=== PATIENT | female | born 1945 | race Caucasian/White ===

== ENCOUNTER 2024-03-12 23:20 | Emergency (ER) | payer MEDICARE, OTHER, SELFPAY ==
[2024-03-12 23:23] VITALS: BP 160/71; BMI 37.7
[2024-03-12 23:25] VITALS: BP 160/71
[2024-03-12 23:34] LABS: Glucose - Point of Care 80 mg/dl (70-99)
[2024-03-12 23:35] LABS: % Basophils 0.5 % (0-2); % Eosinophils 3.3 % (0-6); % Immature Granulocytes 0.5 % (0-0.5); % Monocytes 8.8 % (1.7-9.3); % Neutrophils 61.9 % (42.2-75.2); Absolute Basophils 0.1 10^3/uL (0-0.2); Absolute Eosinophils 0.4 10^3/uL (0-0.7); Absolute Immature Granulocytes 0.1 10^3/uL (0-0.05); Absolute Lymphocytes 3.2 10^3/uL (1.2-3.4); Absolute Monocytes 1.1 10^3/uL (0.1-0.6); Absolute Neutrophils 7.9 10^3/uL (1.4-6.5); Hematocrit 39.2 % (37.0-47.0); Mean Corp Hgb Conc. 33.2 g/dL (33.0-37.0); Mean Corpuscular Hgb 29.5 pg (27.0-31.0); Mean Corpuscular Volume 89.1 fL (81.0-99.0); Mean Platelet Volume 11.2 fL (7.4-10.4); Nucleated Red Blood Cells % 0 %; Platelet Count 215 10^3/uL (130-400); Red Cell Dist. Width 14.9 % (11.5-14.5); White Blood Cell Count 12.8 10^3/uL (4.8-10.8)
[2024-03-12 23:50] LABS: ALT (SGPT) 24 U/L (0-35); AST (SGOT) 42 U/L (14-36); Albumin 4.3 g/dl (3.5-5.0); Alkaline Phosphatase 60 U/L (38-126); Blood Urea Nitrogen 24 mg/dl (7-17); Calcium 9.6 mg/dl (8.4-10.2); Carbon Dioxide 26 mmol/L (22-30); Chloride 103 mmol/L (98-107); Estimated Creatinine Clearance 50 ml/min; Glucose 123 mg/dl (70-99); Sodium 138 mmol/L (135-145); Total Bilirubin 0.4 mg/dl (0.2-1.3); eGFR 57.31
[2024-03-13] VITALS: BP 154/77
[2024-03-13 00:03] LABS: Troponin I < 0.012 ng/ml
--- NOTE | 2024-03-13 00:55 | ED.GENMED ---
History of Present Illness
General
Chief Complaint: Blood Sugar Problem
Source: patient
Exam Limitations: none
Time Seen by Provider: 03/13/24 00:46
Nursing documentation reviewed up to this point in time: agreed with
Travel History
Have you had any contact with someone who has COVID-19?: No
Do you have any symptoms of coronavirus? Fever > 100 degrees, chills, cough, shortness of breath, sore throat, loss of taste or smell, muscle aches, or headache?: No
History of Present Illness
History of Present Illness:
78 yo female presents to the emergency department c/o mental status change at 830 pm. EMS found blood glucose to be 47, she improved after D10W given by EMS. She takes Januvia, Lantus and metformin.
Past History
Past History
ED Past Medical History: CVA (TIA), GERD, HTN, Hypercholesterolemia, NIDDM and Other (Anemia)
ED Past Surgical History: , Gynecological (Hysterectomy) and Orthopedic (Carpal tunnel)
Social History
Tobacco: Non-smoker
Alcohol: None
Personal:
Living: with family
Family History
Family History: CAD and Other
Review of Systems
Review of Systems
Allergies reviewed?: Yes
All Other Systems: Not applicable
Constitutional: Reports no symptoms
EENT: Reports no symptoms
Respiratory: Reports no symptoms
Cardiac: Reports no symptoms
ABD/GI: Reports no symptoms
: Reports no symptoms
Musculoskeletal: Reports no symptoms
Skin: Reports no symptoms
Neurological: Reports other (Altered mental status)
Endocrine: Reports no symptoms
Hematologic/Lymphatic: Reports no symptoms
Psychiatric: Reports no symptoms
Phy Exam
Physical Exam
Physical Exam:
Physical Exam
General: no apparent distress, not acutely ill
Neck: supple. no meningeal signs. normal posterior pharynx
Heart: s1/s2 regular rate and rhythm, no murmur. equal radial
pulses.
HEENT: Pupils equal round reactive to light, EOMI
Lungs: no acute respiratory distress. clear bilaterally
Abdomen: normal bowel sounds. not tender. no CVAT
Neuro: alert and oriented. no focal neurological deficits cranial nerves II through XII intact
Skin: no rash
Psychiatric: well kept. interactive and cooperative
Extremities: no edema. no calf tenderness. negative homans. good distal pulses
Course
Orders/Labs/Results
Orders:
Orders
03/12/24 23:22
Electrocardiogram (*1) Urgent
Reason for Study: Atrial Fibrillation
03/12/24 23:23
EKG- Treatment ONCE
03/12/24 23:29
Complete Blood Count/With Diff Urgent
Comprehensive Metabolic Panel Urgent
Troponin I Urgent
Abnormal Lab Results
03/12/2424
23:29 02:11
WBC 12.8 H 10^3/uL
(4.8-10.8)
RDW 14.9 H %
(11.5-14.5)
MPV 11.2 H fL
(7.4-10.4)
Abs Immat Gran (auto) 0.1 H 10^3/uL
(0-0.05)
Absolute Neuts (auto) 7.9 H 10^3/uL
(1.4-6.5)
Absolute Monos (auto) 1.1 H 10^3/uL
(0.1-0.6)
BUN 24 H mg/dl
(7-17)
Glucose 123 H mg/dl
(70-99)
AST 42 H U/L
(14-36)
POC Glucose 163 H mg/dl
(70-99)
03/12/24 23:29
03/12/24 23:29
Vital Signs
Initial and Last Documented VS:
Initial Vital Signs
Temp Pulse Resp BP Pulse Ox
98.4 F 84 20 160/71 98
03/12/24 23:23 03/12/24 23:23 03/12/24 23:23 03/12/24 23:23 03/12/24 23:23
Last Documented Vital Signs
Temp Pulse Resp BP Pulse Ox
98.4 F 82 18 154/77 94
03/12/24 23:23 03/13/24 00:15 03/13/24 00:15 03/13/24 00:00 03/13/24 00:45
*Pulse Oximetry
Patient hypoxic: no
*EKG
Interpreted by ED Provider?: Yes
EKG Intrepretation Date: 03/12/24
EKG Intrepretation Time: 23:58
Interpretation: abnormal
Comparison EKG: no changes
Heart Rate: 81
Rate: normal
Rhythm: sinus and PAC's
[place]: normal axis
Interval: normal interval
QRS Pattern: normal QRS
Ischemia: no ischemia
*Supervisor [employer] [place] [employer] Interpretation
Rate: normal
Interpretation: normal
Heart Rate: 80
Rhythm: sinus
*Critical Care Note
Total Time (30-74mins, 75-104mins- exclusive of procedures): Not Applicable
Patient Management
Social determinants of health affecting care: Living situation
Escalation/DeEscalation of care consider admission/obs:
admit not indicated
ED Attending Note
-
Portions of this chart may have been created with voice recognition software.� Occasional wrong word or��sound alike� substitutions may have occurred due to the inherent limitations of voice recognition software.
Discharge Plan
Departure
Patient Disposition: Home (Routine Discharge)
Date of Disposition: 03/13/24
Time of Disposition: 02:26
Patient with high blood pressure during this ER visit?: Yes
Condition: Good
Discharge Problem:
Hypoglycemia
Instructions: Type 2 Diabetes (DC), Low blood sugar in people with diabetes, BLOOD PRESSURE
Prescriptions:
No Action
calcium carbonate-vitamin D3 [Calcium 600 + D(3)] 1 EACH tablet
1 ea PO DAILY
lisinopril 5 MG tablet
10 mg PO DAILY
metformin 500 MG tablet extended release 24 hr
1,000 mg PO HS
loperamide [Imodium] 2 mg Capsule
2 mg PO Q6H PRN (Reason: loose stool)
clopidogrel 75 mg Tablet
75 mg PO HS
methenamine hippurate 1 gram Tablet
1 g PO BID
furosemide [Lasix] 20 mg Tablet
20 mg PO DAILY
Januvia 100 mg Tablet
100 mg PO HS
pitavastatin calcium 2 mg Tablet
2 mg PO DAILY
Beano 400 unit Tablet
400 unit PO BID
sertraline 150 mg Capsule
225 mg PO DAILY
biotin 5,000 mcg Tablet,Chewable
5,000 mcg PO DAILY
fluticasone propionate
Referrals:
Lesly Devlin MD [Family Provider] - Call in 1-3 days for appt
Interventions
Interventions:
*Risk Screen - Suicide Last Done: 03/12/24 23:23
*General Assessment Last Done: 03/12/24 23:23
*Neglect/Abuse Screening Last Done: 03/12/24 23:23
*ED COVID-19 Vaccine History Last Done: 03/12/24 23:23
ED- Neurological Assessment Last Done: 03/12/24 23:44
Discharge Date and Time
Print Language: CITIZEN OF [place]
[2024-03-13 02:13] LABS: Glucose - Point of Care 163 mg/dl (70-99)
[2024-03-13 02:29] VITALS: BP 113/54
== END 2024-03-13 03:07 | disposition home or self-care (01) ==
LOC: EMR 23:20
PROVIDERS: EMERGENCY PHYSICIAN Emergency Medicine; FAMILY PHYSICIAN Internal Medicine
DX: E11.649 Type 2 diabetes mellitus with hypoglycemia without coma (principal); I48.91 Unspecified atrial fibrillation; E78.00 Pure hypercholesterolemia, unspecified; I10 Essential (primary) hypertension; K21.9 Gastro-esophageal reflux disease without esophagitis; Z86.73 Personal history of transient ischemic attack (TIA), and cerebral infarction without residual deficits; Z87.891 Personal history of nicotine dependence; Z79.84 Long term (current) use of oral hypoglycemic drugs; Z91.040 Latex allergy status; Z88.8 Allergy status to other drugs, medicaments and biological substances; Z91.048 Other nonmedicinal substance allergy status
CPT/HCPCS: 99283; 80053; 82962; 84484; 85025; 93005

== ENCOUNTER → 2024-07-28 13:21 | Outpatient (REF) | payer MEDICARE, OTHER, SELFPAY | LOC: WDC 13:21 | PROVIDERS: ATTENDING PHYSICIAN Internal Medicine | DX: Z12.31 Encounter for screening mammogram for malignant neoplasm of breast (principal) | CPT/HCPCS: 77063; 77067 ==

== ENCOUNTER → 2025-01-16 14:22 | Outpatient (REF) | payer MEDICARE, OTHER, SELFPAY | LOC: HWRAD 14:22 | PROVIDERS: ATTENDING PHYSICIAN Internal Medicine | DX: Z91.81 History of falling (principal); M79.672 Pain in left foot | CPT/HCPCS: 73610; 73630 ==

== ENCOUNTER 2025-05-22 22:54 | Inpatient (IN) | payer MEDICARE, OTHER, SELFPAY ==
[2025-05-22 16:49] VITALS: BP 151/87
--- NOTE | 2025-05-22 20:03 | ED.GENMED ---
History of Present Illness
General
Chief Complaint: Musculo-Skeletal Complaint
Source: patient
Time Seen by Provider: 05/22/25 19:23
History of Present Illness
History of Present Illness:
79-year-old female presents to the emergency room at the advice of her reading professor, Dr. Sterling, due to osteomyelitis of the second digit of her left foot. Patient has been noticing redness, swelling, purulent drainage from the toe. An ulceration
developed on the top of the toe. She also noticed swelling and redness of the great toe. When she saw the reading professor she ordered an urgent MRI. This confirms clinical suspicion that she has significant osteomyelitis. He advised her he would like
her to be hospitalized for amputation of the toe tomorrow. She denies any fever. She has not had any nausea or vomiting.
Past History
Past History
ED Past Medical History: CVA (TIA), GERD, HTN, Hypercholesterolemia, NIDDM and Other (Anemia)
ED Past Surgical History: , Gynecological (Hysterectomy) and Orthopedic (Carpal tunnel)
Social History
Tobacco: Non-smoker
Alcohol: None
Personal:
Living: with family
Family History
Family History: CAD and Other
Phy Exam
Physical Exam
Physical Exam:
General: Awake, Alert, Oriented X3. No acute distress.
Vitals: unremarkable
Head: Atraumatic
Eyes: Pupils equal, EOMI
Throat: Airway intact, no exudates
Neck: Trachea midline
Lungs: Clear and equal b/l
Heart: Regular rate, no murmurs
Abd: Soft, Nontender, No pulsatile mass
Neuro: Nonfocal
Skin: Warm, dry, no rash
Extremities: pulses equal b/l. Left foot great toe mildly erythematous and swollen, second toe markedly erythematous swollen with ulceration and some necrotic tissue. Area tender to palpation. Remainder of the foot appears relatively normal.
Course
Orders/Labs/Results
Orders:
Orders
05/22/25 20:21
Basic Metabolic Panel Urgent
Complete Blood Count/With Diff Urgent
Magnesium Urgent
05/22/25 21:04
Ampicillin/Sulbactam 3 G [Unasyn] 3 gm 0.9% Sodium Chloride 100 ml [Nss] 100 ml IV NOW
Vancomycin [Vancocin] 2,000 mg 0.9% Sodium Chloride 500 ml [Nss] 500 ml IV NOW
Abnormal Lab Results
05/22/25
20:21
MCHC 32.6 L g/dL
(33.0-37.0)
MPV 11.2 H fL
(7.4-10.4)
Chloride 109 H mmol/L
(98-107)
BUN 18 H mg/dl
(7-17)
Glucose 123 H mg/dl
(70-99)
05/22/25 20:21
05/22/25 20:21
Vital Signs
Initial and Last Documented VS:
Initial Vital Signs
Temp Pulse Resp BP Pulse Ox
97.8 F 86 18 151/87 98
05/22/25 16:49 05/22/25 16:49 05/22/25 16:49 05/22/25 16:49 05/22/25 16:49
Last Documented Vital Signs
Temp Pulse Resp BP Pulse Ox
97.8 F 70 26 168/61 99
05/22/25 16:49 05/22/25 21:00 05/22/25 21:00 05/22/25 21:00 05/22/25 20:30
MDM/Problems Addressed
Differential Diagnosis Includes:
Cellulitis, osteomyelitis, vascular insufficiency
MDM/Problems Addressed:
Patient presents with redness, purulent drainage and swelling primarily of the left second toe though the left great toe also appears somewhat erythematous. An outpatient MRI confirms the presence of osteomyelitis. Patient is scheduled for the OR
tomorrow. Will obtain some basic labs. She is taking oral antibiotics at this time. Will admit to the hospitalist service
*Pulse Oximetry
SaO2: 98
Oxygen Mode of Delivery: Room air
Patient hypoxic: no
*Critical Care Note
Total Time (30-74mins, 75-104mins- exclusive of procedures): Not Applicable
ED Attending Note
-
Portions of this chart may have been created with voice recognition software.� Occasional wrong word or��sound alike� substitutions may have occurred due to the inherent limitations of voice recognition software.
Discharge Plan
Departure
Patient Disposition: Admit
Date of Disposition: 05/22/25
Time of Disposition: 21:08
Admit to: Med/Surg
Presentation/result/management discussed w/ accepting MD/DO: Hospitalist
Condition: Fair
Discharge Problem:
Osteomyelitis of second toe of left foot
Prescriptions:
No Action
calcium carbonate-vitamin D3 [Calcium 600 + D(3)] 1 EACH tablet
1 ea PO DAILY
lisinopril 5 MG tablet
10 mg PO DAILY
metformin 500 MG tablet extended release 24 hr
1,000 mg PO HS
loperamide [Imodium] 2 mg Capsule
2 mg PO Q6H PRN (Reason: loose stool)
clopidogrel 75 mg Tablet
75 mg PO HS
methenamine hippurate 1 gram Tablet
1 g PO BID
furosemide [Lasix] 20 mg Tablet
20 mg PO DAILY
Januvia 100 mg Tablet
100 mg PO HS
pitavastatin calcium 2 mg Tablet
2 mg PO DAILY
Beano 400 unit Tablet
400 unit PO BID
sertraline 150 mg Capsule
225 mg PO DAILY
biotin 5,000 mcg Tablet,Chewable
5,000 mcg PO DAILY
fluticasone propionate
Referrals:
Lesly Devlin MD [Family Provider, Internal Medicine]
Interventions
Interventions:
*Risk Screen - Suicide Last Done: 05/22/25 20:37
*General Assessment Last Done: 05/22/25 20:10
*Neglect/Abuse Screening Last Done: 05/22/25 20:10
*ED- Fall Risk Assessment Last Done: 05/22/25 20:10
*ED COVID-19 Vaccine History Last Done: 05/22/25 20:10
ED-Musculoskeletal Assessment Last Done: 05/22/25 20:10
Discharge Date and Time
Print Language: [place]
[2025-05-22 20:12] VITALS: BMI 34.8
[2025-05-22 20:13] VITALS: BP 148/77
[2025-05-22 20:27] LABS: Hematocrit 38.3 % (37.0-47.0); Hemoglobin 12.5 g/dL (12.0-16.0); Mean Corp Hgb Conc. 32.6 g/dL (33.0-37.0); Mean Corpuscular Volume 91.0 fL (81.0-99.0); Nucleated Red Blood Cells % 0 %; Platelet Count 175 10^3/uL (130-400); Red Cell Dist. Width 14.0 % (11.5-14.5)
[2025-05-22 20:45] LABS: Blood Urea Nitrogen 18 mg/dl (7-17); Calcium 8.9 mg/dl (8.4-10.2); Carbon Dioxide 25 mmol/L (22-30); Chloride 109 mmol/L (98-107); Estimated Creatinine Clearance 48 ml/min; Glucose 123 mg/dl (70-99); Magnesium 2.0 mg/dl (1.6-2.3); Potassium 3.9 mmol/L (3.5-5.1); Sodium 139 mmol/L (135-145); eGFR 56.95
[2025-05-22 21:00] VITALS: BP 168/61
--- NOTE | 2025-05-22 21:21 | HPS.HSE ---
Addendum entered and electronically signed by Merritt Alberts DO 05/22/25 23:01:
Patient seen and examined independently. Agree with findings and plan as set forth by DENISE Ariza.
Patient is an 79y F with PMH significant for hypertension, DM-II and prior TIA who presents to ED complaining of R 2nd toe pain and redness. Patient states that she slipped in the shower 4 weeks ago and fractured the 1st / 2nd toes on the R
foot. She has been followed by Podiatry since that time. The 2nd digits has a hammertoe deformity and there has been interval development of redness and ulceration over the DIP. She was seen by Podiatry today and had an outpatient MRI which
reportedly showed osteomyelitis. Patient was referred to the ED for admission with tentative plan for 2nd digit amputation tomorrow.
Patient denies any systemic complaints of fevers, chills, N/V/D, etc.
Ass:
Osteomyelitis R 2nd Toe
ASCVD / TIA
Benign Hypertension
DM-II
Hypothyroidism
GERD
Recurrent UTI
Plan:
Admit for further evaluation and treatment.
Initial abx given in the ED - hold further abx pending OR cultures / ID input.
Ortho / Podiatry consulted with tentative plan for OR / amputation on 05/23.
Pain control, supportive care, etc.
Hold Plavix. Continue ASA.
Continue usual outpatient med regimen otherwise.
Follow glucose and cover with SSI as needed.
Original Note:
Family Physician
-
Family Physician: Lesly Devlin
Chief Complaint
-
Left foot second toe erythema, osteomyelitis
History of Present Illness
79-year-old female who was sent by her felt hat flanging operator due to osteomyelitis of the second digit of her left foot. She has noticed redness, swelling with purulent drainage from the toe along with an ulceration at the tip of the toe. Patient reports that
she slipped getting out of the tub approximately 4 weeks ago and fractured her great toe and second toe. She noticed that her second toe became red and swollen this toe has baseline hammertoe. She has an open ulceration on the dorsal aspect. She
reports neuropathy in bilateral feet and does not have any pain. She had outpatient MRI confirming suspicion of osteomyelitis she was sent to ER for hospitalization for amputation of the toe tomorrow 05/23/2025
She has past medical history of CVA/TIA, GERD, HTN, HLD, DM2, diabetic neuropathy to feet anemia
Medical History
Past Medical History
Past Medical History: Reports Other
Additional Past Medical History:
CVA/TIA
GERD
HTN
HLD
DM2
anemia normocytic
Depression
Hypothyroidism
Past Surgical History: Reports Other
Additional Past Surgical History:
section
Hysterectomy
CTR
Social History
Tobacco: Non-smoker
Alcohol: None
Drug: None
Personal:
Living: With Family ( at [facility])
Employment: Retired
Family History
Family History: Not pertinent
Allergies / Home Medications
Allergies reflects when Allergies were last updated in [facility].
Home Medications with original date entered in [facility]
Allergy/Medication List:
Allergies
Allergy/AdvReac Type Severity Reaction Status Date / Time
adhesive tape (Adhesive Tape) Allergy Itching Verified 05/22/25 21:40
latex (Latex) Allergy Shortness Verified 05/22/25 21:40
of Breath
nitrofurantoin (From Allergy elevated Verified 11/05/10 09:09
Macrobid) temp,
worse sx
nitrofurantoin Allergy elevated Verified 11/05/10 09:09
macrocrystalline (From temp,
Macrobid) worse sx
Home Medications
calcium 600 mg (as carbonate)-vitamin D3 5 mcg (200 unit) tablet (Calcium 600 + D(3)) 1 ea PO DAILY 06/08/10
lisinopril 5 mg tablet 10 mg PO DAILY 11/05/10
biotin 5,000 mcg chewable tablet 5,000 mcg PO DAILY 03/12/24
fluticasone propionate 1 spray intranasal DAILY PRN allergies 03/12/24
furosemide 20 mg tablet (Lasix) 20 mg PO DAILY 03/12/24
loperamide 2 mg capsule 2 mg PO Q6H PRN loose stool 03/12/24
methenamine hippurate 1 gram tablet 1 g PO BID 03/12/24
pitavastatin calcium 2 mg tablet 2 mg PO DAILY 03/12/24
sertraline 150 mg capsule 150 mg PO DAILY 03/12/24
Aspir-81 81 mg PO DAILY 05/22/25
Lantus Solostar U-100 Insulin 60 units SC HS 05/22/25
Novolin R FlexPen 10 units SC PC 05/22/25
Synthroid 150 mcg PO DAILY 05/22/25
Zetia 10 mg PO DAILY@18 05/22/25
clopidogrel 75 mg tablet (Plavix) 75 mg PO DAILY 05/22/25
Review of Systems
-
History Source: Patient and Family (Daughter at bedside)
A 12 point ROS was completed and negative except as noted: Yes
Constitutional: Denies Fever or Chills
EENT: Denies Sore Throat or Runny Nose
Respiratory: Denies Cough or Trouble Breathing
Cardiac: Denies Chest Pain, Diaphoresis, Palpitations or Syncope
Abdomen/GI: Denies Abdominal Pain, Nausea, Vomiting, Diarrhea or Constipated
: Denies Dysuria, Frequency, Flank Pain, Incontinence or Difficulty Voiding
Musculoskeletal: Reports Joint Pain (Left second toe with erythema and dorsal aspect ulceration); Denies Edema
Skin: Denies Itching or Rash
Neurological: Denies Dizzy, Headache or Weakness
Endocrine: Reports No Symptoms
Hematologic/Lymphatic: Reports No Symptoms
Psych: Reports Calm
Physical Exam
Vital Signs
Vital Signs
Temp Pulse Resp BP Pulse Ox
97.8 F 70 26 168/61 99
05/22/25 16:49 05/22/25 21:00 05/22/25 21:00 05/22/25 21:00 05/22/25 20:30
Physical Exam
General: Comfortable and Conversant; No Pain, Fever or Chills
HEENT: NormoCephalic, Anicteric, Moist mucous membranes, [place] Conjunctivae and No Ptosis
Respiratory: Clear; No Wheezes, Rales or Rhonchi
Cardiac: S1/S2 and Regular Rhythm; No Murmur, Rub, Gallop or Peripheral Edema
Breast: Deferred by me
GI: Soft, Non Tender, Non Distended, Normal Bowel Sounds and No Hepatosplenomegaly
Rectal: Deferred by Provider
Genito-urinary: Deferred by me
Musculoskeletal: No Clubbing, No Cyanosis and Edema, Left Lower Extremity (Left second toe with erythema and dorsal aspect ulceration); No Edema, Left Upper Extremity, Edema, Right Upper Extremity or Edema, Right Lower Extremity
Skin: Warm and Dry; No Rash
Neuro: AO x 3, No Motor Deficits, Nonfocal/grossly intact, Cranial Nerves Intact and No Sensory Deficits; No Slurred Speech, Facial Droop, Tremors or Sedated
Psych: Calm
Laboratory Results
-
05/22/25 20:21
05/22/25 20:21
Impression/Plan
-
Impression/plan:
Admit to MedSurg
#Osteomyelitis left second toe/hammertoe second toe
Afebrile, nontoxic
- Consult [facility]
-OR in a.m.
Patient was given IV vancomycin IV Unasyn in ER would hold further antibiotics post amputation
Follow CBC, CMP
DM 2/diabetic neuropathy
Blood sugar 123
Accu-Cheks with SSI, check HgbA1c
-Patient is n.p.o. will hold her Lantus 60 units this evening cover with sliding scale
-Patient takes NovoLog 10 units after meals
HTN
BP 168/61
Continue lisinopril 10 mg daily, Lasix 20 mg daily
HLD
Continue Zetia
GERD
No reported meds
Hypothyroidism
Continue Synthroid
Depression
Continue Zoloft 150 mg daily
CVA/TIA
- Hold Plavix, aspirin
Frequent UTIs
Hold methenamine 1 g p.o. twice daily
Anemia normocytic
Hemoglobin stable 12.5
DVT prophylaxis
SCDs
Full code
[2025-05-22] MEDS: UNASYN IV (21:56)
[2025-05-22] MEDS: VANCOCIN 540 MG IV (22:39)
[2025-05-22] MEDS: LANTUS 0.2 UNITS SC (23:27)
[2025-05-22 23:29] VITALS: BP 157/77
[2025-05-22 23:32] LABS: Glucose - Point of Care 152 mg/dl (70-99)
[2025-05-23] VITALS (11 sets, daily range): BP systolic 104–177; BP diastolic 51–100
[2025-05-23] MEDS: SYNTHROID 150 MCG PO (06:06)
[2025-05-23 06:14] LABS: Hematocrit 35.0 % (37.0-47.0); Hemoglobin 11.4 g/dL (12.0-16.0); Mean Corp Hgb Conc. 32.6 g/dL (33.0-37.0); Mean Corpuscular Volume 90.9 fL (81.0-99.0); Nucleated Red Blood Cells % 0 %; Platelet Count 157 10^3/uL (130-400); Red Cell Dist. Width 14.0 % (11.5-14.5)
[2025-05-23 06:48] LABS: ALT (SGPT) 16 U/L (0-35); AST (SGOT) 19 U/L (14-36); Albumin 3.3 g/dl (3.5-5.0); Alkaline Phosphatase 40 U/L (38-126); Blood Urea Nitrogen 17 mg/dl (7-17); Calcium 8.7 mg/dl (8.4-10.2); Carbon Dioxide 26 mmol/L (22-30); Chloride 112 mmol/L (98-107); Estimated Creatinine Clearance 43 ml/min; Glucose 119 mg/dl (70-99); Potassium 3.9 mmol/L (3.5-5.1); Sodium 140 mmol/L (135-145); Total Protein 5.6 g/dl (6.3-8.2); eGFR 50.80
[2025-05-23] MEDS: ZOLOFT 150 MG PO (07:53)
[2025-05-23] MEDS: ZESTRIL 10 MG PO (07:53)
[2025-05-23] MEDS: LOW STRENGTH ASPIRIN 81 MG PO (07:53)
[2025-05-23] MEDS: OSCAL 500 + D 500 MG PO (07:54)
[2025-05-23 08:35] LABS: Glucose - Point of Care 153 mg/dl (70-99)
[2025-05-23 08:41] LABS: Glycohemoglobin (HgbA1c) 7.2 % (4.0-5.6)
[2025-05-23] MEDS: NOVOLOG FLEXPEN-LOW RESISTANCE 1 UNITS SC (09:43)
[2025-05-23 12:19] LABS: Glucose - Point of Care 131 mg/dl (70-99)
[2025-05-23] MEDS: NOVOLOG FLEXPEN-LOW RESISTANCE SC ×2 (12:19→17:05)
--- NOTE | 2025-05-23 12:35 | W.PN.HOSP.TC ---
Today's Communication/Plan
-
OR today
Pain control-post op orders per surgery
ID input
restart plavix post op
Assessment / Plan
Assessment / Plan
General: Comfortable and Conversant;
HEENT: NormoCephalic, Anicteric, Moist mucous membranes, [place] Conjunctivae and No Ptosis
Respiratory: Clear; No Wheezes, Rales or Rhonchi
Cardiac: S1/S2 and Regular Rhythm; No Murmur, Rub, Gallop or Peripheral Edema
GI: Soft, Non Tender, Non Distended, Normal Bowel Sounds
Musculoskeletal: No Clubbing, No Cyanosis and Edema, Left Lower Extremity (Left second toe with erythema and dorsal aspect ulceration);
Skin: Warm and Dry; No Rash
Neuro: AO x 3, No Motor Deficits, Nonfocal/grossly intact, Cranial Nerves Intact and No Sensory Deficits; No Slurred Speech, Facial Droop, Tremors or Sedated
Psych: Calm
#Osteomyelitis left second toe/hammertoe second toe
OR plan for later today by Dr. Fonseca -if surgical cure may not require prolong course of abx.
Patient was given IV vancomycin IV Unasyn in ER would hold further antibiotics post amputation
Follow CBC, CMP
ID input.
#DM 2/diabetic neuropathy
Accu-Cheks with SSI,
A1C 7.2
reduce lantus dose to 30u qhs for now
Patient takes NovoLog 10 units AC
HTN
Continue lisinopril 10 mg daily, Lasix 20 mg daily
HLD
Continue Zetia
GERD
No reported meds
Hypothyroidism
Continue Synthroid
Depression
Continue Zoloft 150 mg daily
CVA/TIA
- Hold Plavix. Cont aspirin
Frequent UTIs
Hold methenamine 1 g p.o. twice daily
Anemia normocytic
Hemoglobin stable 12.5
DVT prophylaxis-post op start chemical ppx once cleared by surgery
Full code
Anticipated Discharge: > 48 hours
Subjective/Interval History
-
Date of Service: May 23, 2025
states of chronic diabetic neuropathy
Objective Data
-
Labs:
Laboratory Results
05/23/25
05:57
WBC 7.1
Hgb 11.4 L
Hct 35.0 L
Plt Count 157
Sodium 140
Potassium 3.9
Chloride 112 H
Carbon Dioxide 26
BUN 17
Creatinine 1.1 H
Glucose 119 H
Calcium 8.7
Total Bilirubin 0.6
AST 19
ALT 16
Alkaline Phosphatase 40
Vital Signs:
Vital Signs
Temp Pulse Resp BP Pulse Ox
98.6 F 64 18 177/81 99
05/23/25 12:33 05/23/25 12:33 05/23/25 12:33 05/23/25 12:33 05/23/25 12:33
Data Reviewed
-
Total Time Spent with Patient (in minutes): 55
--- NOTE | 2025-05-23 13:12 | OR.RPT ---
Addendum entered and electronically signed by Dev Fonseca MD 05/23/25 13:30:
Disregard note
Original Note:
Operative Report
Operative Report
Date of Consultation: 05/23/2025
Chief Complaint
-
Left foot second toe erythema, osteomyelitis
History of Present Illness
79-year-old female who was sent by myself on 05/22/2025 from the office due to osteomyelitis of the second digit of her left foot. She has noticed redness, swelling with purulent drainage from the toe along with an ulceration at the tip of the toe.
Patient reports that she slipped getting out of the tub approximately 4 weeks ago and fractured her great toe and second toe. She noticed that her second toe became red and swollen this toe has baseline hammertoe. She has an open ulceration on the
dorsal aspect. She reports neuropathy in bilateral feet and does not have any pain. She had outpatient MRI confirming suspicion of osteomyelitis she was sent to ER for hospitalization for amputation of the toe 05/23/2025
She has past medical history of CVA/TIA, GERD, HTN, HLD, DM2, diabetic neuropathy to feet anemia
Medical History
Past Medical History
Past Medical History: Reports Other
Additional Past Medical History:
CVA/TIA
GERD
HTN
HLD
DM2
anemia normocytic
Depression
Hypothyroidism
Past Surgical History: Reports Other
Additional Past Surgical History:
section
Hysterectomy
CTR
Social History
Tobacco: Non-smoker
Alcohol: None
Drug: None
Personal:
Living: With Family ( at [facility])
Employment: Retired
Family History
Family History: Not pertinent
Allergies / Home Medications
Allergies reflects when Allergies were last updated in [facility].
Home Medications with original date entered in [facility]
Allergy/Medication List:
Allergies
Allergy/AdvReac Type Severity Reaction Status Date / Time
adhesive tape (Adhesive Tape) Allergy Itching Verified 05/22/25 21:40
latex (Latex) Allergy Shortness Verified 05/22/25 21:40
of Breath
nitrofurantoin (From Allergy elevated Verified 11/05/10 09:09
Macrobid) temp,
worse sx
nitrofurantoin Allergy elevated Verified 11/05/10 09:09
macrocrystalline (From temp,
Macrobid) worse sx
Home Medications
calcium 600 mg (as carbonate)-vitamin D3 5 mcg (200 unit) tablet (Calcium 600 + D(3)) 1 ea PO DAILY 06/08/10
lisinopril 5 mg tablet 10 mg PO DAILY 11/05/10
biotin 5,000 mcg chewable tablet 5,000 mcg PO DAILY 03/12/24
fluticasone propionate 1 spray intranasal DAILY PRN allergies 03/12/24
furosemide 20 mg tablet (Lasix) 20 mg PO DAILY 03/12/24
loperamide 2 mg capsule 2 mg PO Q6H PRN loose stool 03/12/24
methenamine hippurate 1 gram tablet 1 g PO BID 03/12/24
pitavastatin calcium 2 mg tablet 2 mg PO DAILY 03/12/24
sertraline 150 mg capsule 150 mg PO DAILY 03/12/24
Aspir-81 81 mg PO DAILY 05/22/25
Lantus Solostar U-100 Insulin 60 units SC HS 05/22/25
Novolin R FlexPen 10 units SC PC 05/22/25
Synthroid 150 mcg PO DAILY 05/22/25
Zetia 10 mg PO DAILY@18 05/22/25
clopidogrel 75 mg tablet (Plavix) 75 mg PO DAILY 05/22/25
Review of Systems
-
History Source: Patient and Family (Daughter at bedside)
A 12 point ROS was completed and negative except as noted: Yes
Constitutional: Denies Fever or Chills
EENT: Denies Sore Throat or Runny Nose
Respiratory: Denies Cough or Trouble Breathing
Cardiac: Denies Chest Pain, Diaphoresis, Palpitations or Syncope
Abdomen/GI: Denies Abdominal Pain, Nausea, Vomiting, Diarrhea or Constipated
: Denies Dysuria, Frequency, Flank Pain, Incontinence or Difficulty Voiding
Musculoskeletal: Reports Joint Pain (Left second toe with erythema and dorsal aspect ulceration); Denies Edema
Skin: Denies Itching or Rash
Neurological: Denies Dizzy, Headache or Weakness
Endocrine: Reports No Symptoms
Hematologic/Lymphatic: Reports No Symptoms
Psych: Reports Calm
Physical Exam
Vital Signs
Vital Signs
Temp Pulse Resp BP Pulse Ox
97.8 F 70 26 168/61 99
05/22/25 16:49 05/22/25 21:00 05/22/25 21:00 05/22/25 21:00 05/22/25 20:30
Physical Exam
General: Comfortable and Conversant; No Pain, Fever or Chills
HEENT: NormoCephalic, Anicteric, Moist mucous membranes, [place] Conjunctivae and No Ptosis
Respiratory: Clear; No Wheezes, Rales or Rhonchi
Cardiac: S1/S2 and Regular Rhythm; No Murmur, Rub, Gallop or Peripheral Edema
Breast: Deferred by me
GI: Soft, Non Tender, Non Distended, Normal Bowel Sounds and No Hepatosplenomegaly
Rectal: Deferred by Provider
Genito-urinary: Deferred by me
Musculoskeletal: No Clubbing, No Cyanosis and Edema, Left Lower Extremity (Left second toe with erythema and dorsal aspect ulceration); No Edema, Left Upper Extremity, Edema, Right Upper Extremity or Edema, Right Lower Extremity
Skin: Warm and Dry; No Rash
Neuro: AO x 3, No Motor Deficits, Nonfocal/grossly intact, Cranial Nerves Intact and No Sensory Deficits; No Slurred Speech, Facial Droop, Tremors or Sedated
Psych: Calm
LLE Physical Exam
-DP/PT pulses 1/4 bilaterally, capillary refill < 3 seconds
-Left 2nd PIPJ with full thickness wound, exposed bone and serous drainage. Dislocation noted of left hallux
-Neurological status to the foot grossly diminished
Laboratory Results
-
05/22/25 20:21
05/22/25 20:21
Impression/Plan
79 yo F with PMH CVA/TIA, GERD, HTN, HLD, DM2, diabetic neuropathy presents with left 2nd toe osteomyelitis from outpatient MRI
-Outpatient imaging reviewed
-Ok to hold antibiotics for operative cultures
-Plan for left 2nd toe amputation 05/23
-Heel WBAT to LLE
-Labs reviewed, hbA1c 7.2% no leukocytosis
-Will consider ELIZABETH/PVR post op pending intraoperative bleeding. Peripheral pulses are palpable
--- NOTE | 2025-05-23 13:30 | CON.SURG ---
Surgical Consultation
-
Operative Report
Operative Report
Date of Consultation: 05/23/2025
Chief Complaint
-
Left foot second toe erythema, osteomyelitis
History of Present Illness
79-year-old female who was sent by myself on 05/22/2025 from the office due to osteomyelitis of the second digit of her left foot. She has noticed redness, swelling with purulent drainage from the toe along with an ulceration at the tip of the toe.
Patient reports that she slipped getting out of the tub approximately 4 weeks ago and fractured her great toe and second toe. She noticed that her second toe became red and swollen this toe has baseline hammertoe. She has an open ulceration on the
dorsal aspect. She reports neuropathy in bilateral feet and does not have any pain. She had outpatient MRI confirming suspicion of osteomyelitis she was sent to ER for hospitalization for amputation of the toe 05/23/2025
She has past medical history of CVA/TIA, GERD, HTN, HLD, DM2, diabetic neuropathy to feet anemia
Medical History
Past Medical History
Past Medical History: Reports Other
Additional Past Medical History:
CVA/TIA
GERD
HTN
HLD
DM2
anemia normocytic
Depression
Hypothyroidism
Past Surgical History: Reports Other
Additional Past Surgical History:
section
Hysterectomy
CTR
Social History
Tobacco: Non-smoker
Alcohol: None
Drug: None
Personal:
Living: With Family ( at [employer])
Employment: Retired
Family History
Family History: Not pertinent
Allergies / Home Medications
Allergies reflects when Allergies were last updated in [email or web address].
Home Medications with original date entered in [email or web address]
Allergy/Medication List:
Allergies
Allergy/AdvReac Type Severity Reaction Status Date / Time
adhesive tape (Adhesive Tape) Allergy Itching Verified 05/22/25 21:40
latex (Latex) Allergy Shortness Verified 05/22/25 21:40
of Breath
nitrofurantoin (From Allergy elevated Verified 11/05/10 09:09
Macrobid) temp,
worse sx
nitrofurantoin Allergy elevated Verified 11/05/10 09:09
macrocrystalline (From temp,
Macrobid) worse sx
Home Medications
calcium 600 mg (as carbonate)-vitamin D3 5 mcg (200 unit) tablet (Calcium 600 + D(3)) 1 ea PO DAILY 06/08/10
lisinopril 5 mg tablet 10 mg PO DAILY 11/05/10
biotin 5,000 mcg chewable tablet 5,000 mcg PO DAILY 03/12/24
fluticasone propionate 1 spray intranasal DAILY PRN allergies 03/12/24
furosemide 20 mg tablet (Lasix) 20 mg PO DAILY 03/12/24
loperamide 2 mg capsule 2 mg PO Q6H PRN loose stool 03/12/24
methenamine hippurate 1 gram tablet 1 g PO BID 03/12/24
pitavastatin calcium 2 mg tablet 2 mg PO DAILY 03/12/24
sertraline 150 mg capsule 150 mg PO DAILY 03/12/24
Aspir-81 81 mg PO DAILY 05/22/25
Lantus Solostar U-100 Insulin 60 units SC HS 05/22/25
Novolin R FlexPen 10 units SC PC 05/22/25
Synthroid 150 mcg PO DAILY 05/22/25
Zetia 10 mg PO DAILY@18 05/22/25
clopidogrel 75 mg tablet (Plavix) 75 mg PO DAILY 05/22/25
Review of Systems
-
History Source: Patient and Family (Daughter at bedside)
A 12 point ROS was completed and negative except as noted: Yes
Constitutional: Denies Fever or Chills
EENT: Denies Sore Throat or Runny Nose
Respiratory: Denies Cough or Trouble Breathing
Cardiac: Denies Chest Pain, Diaphoresis, Palpitations or Syncope
Abdomen/GI: Denies Abdominal Pain, Nausea, Vomiting, Diarrhea or Constipated
: Denies Dysuria, Frequency, Flank Pain, Incontinence or Difficulty Voiding
Musculoskeletal: Reports Joint Pain (Left second toe with erythema and dorsal aspect ulceration); Denies Edema
Skin: Denies Itching or Rash
Neurological: Denies Dizzy, Headache or Weakness
Endocrine: Reports No Symptoms
Hematologic/Lymphatic: Reports No Symptoms
Psych: Reports Calm
Physical Exam
Vital Signs
Vital Signs
Temp Pulse Resp BP Pulse Ox
97.8 F 70 26 168/61 99
05/22/25 16:49 05/22/25 21:00 05/22/25 21:00 05/22/25 21:00 05/22/25 20:30
Physical Exam
General: Comfortable and Conversant; No Pain, Fever or Chills
HEENT: NormoCephalic, Anicteric, Moist mucous membranes, [place] Conjunctivae and No Ptosis
Respiratory: Clear; No Wheezes, Rales or Rhonchi
Cardiac: S1/S2 and Regular Rhythm; No Murmur, Rub, Gallop or Peripheral Edema
Breast: Deferred by me
GI: Soft, Non Tender, Non Distended, Normal Bowel Sounds and No Hepatosplenomegaly
Rectal: Deferred by Provider
Genito-urinary: Deferred by me
Musculoskeletal: No Clubbing, No Cyanosis and Edema, Left Lower Extremity (Left second toe with erythema and dorsal aspect ulceration); No Edema, Left Upper Extremity, Edema, Right Upper Extremity or Edema, Right Lower Extremity
Skin: Warm and Dry; No Rash
Neuro: AO x 3, No Motor Deficits, Nonfocal/grossly intact, Cranial Nerves Intact and No Sensory Deficits; No Slurred Speech, Facial Droop, Tremors or Sedated
Psych: Calm
LLE Physical Exam
-DP/PT pulses 1/4 bilaterally, capillary refill < 3 seconds
-Left 2nd PIPJ with full thickness wound, exposed bone and serous drainage. Dislocation noted of left hallux
-Neurological status to the foot grossly diminished
Laboratory Results
-
05/22/25 20:21
05/22/25 20:21
Impression/Plan
79 yo F with PMH CVA/TIA, GERD, HTN, HLD, DM2, diabetic neuropathy presents with left 2nd toe osteomyelitis from outpatient MRI
-Outpatient imaging reviewed
-Ok to hold antibiotics for operative cultures
-Plan for left 2nd toe amputation 05/23
-Heel WBAT to LLE
-Labs reviewed, hbA1c 7.2% no leukocytosis
-Will consider ELIZABETH/PVR post op pending intraoperative bleeding. Peripheral pulses are palpable
--- NOTE | 2025-05-23 13:39 | CON.ID ---
Consultation
-
Date/Time Consultation Requested: 05/23/2025 1243
Date/Time Consultation Performed: 05/03/2025 1300
Requesting Provider: Dr. Lemus
Performing Provider: Dr. Brown
Reason for Consultation: Left second toe osteomyelitis
Chief Complaint / Past History
History of Present Illness
Shonda Rob is an 79-year-old female being evaluated at the request of Dr. Lemus in regards to left second toe osteomyelitis. History is obtained from chart review, along with patient interview.
Patient reports that in mid February she sustained a fall living at her assisted living facility. At that time, she recalls that she heard a 'crack' in her feet. A week later, she reports she was seen at [facility], and x-rays were
performed (not available to me at the present time). And she reports that her toes were broken.
In the interim, she wore shoes, but notes that she developed an area of irritation at the top of her left second toe which ultimately broke down. She has been followed by Podiatry closely and recently an MRI was performed (outside the hospital)
which revealed the presence of osteomyelitis. She has been brought into the hospital for amputation of her left second toe. She notes that she has been on antibiotics for approximately the past 18 days (cefadroxil)
She denies any spreading erythema up her foot and leg. She denies specific pain at the present time.
Past History
Additional Past Medical History:
DM
Hypothyroidism
HLD
HTN
CVA/TIA
Anemia
Depression
Additional Past Surgical History:
Fracture left patella
Allergy History:
adhesive tape (Adhesive Tape) Allergy (Verified 05/22/25 21:40)
Itching
latex (Latex) Allergy (Verified 05/22/25 21:40)
Shortness of Breath
nitrofurantoin (From Macrobid) Allergy (Verified 11/05/10 09:09)
elevated temp, worse sx
nitrofurantoin macrocrystalline (From Macrobid) Allergy (Verified 11/05/10 09:09)
elevated temp, worse sx
Medications Reviewed: Yes
Current Antibiotics:
None
Social History
Tobacco: Non-Smoker
Alcohol: None
Drug: None
Living: Assisted Living
Employment: Not Employed
Family History
Family History: Not Pertinent
Review of Systems
Vital Signs
Temp Pulse Resp BP Pulse Ox
98.6 F 64 18 177/81 99
05/23/25 12:33 05/23/25 12:33 05/23/25 12:33 05/23/25 12:33 05/23/25 12:33
Physical Exam
Physical Exam
Constitutional: No Acute Distress, Comfortable and Non-toxic
Eyes: No Conjunctival Hemorrhage and Sclera Anicteric
Oral: No Thrush and No Ulcers
Cardiovascular: Regular Rate and S1/S2; Negative S3/S4
Pulmonary: Clear; Negative Wheezes, Rales or Rhonchi
Gastrointestinal: Soft, Non Tender, Non Distended and Normal Bowel Sounds
Extremities: Negative Edema, Clubbing or Cyanosis
Skin: Warm and Dry
Wound: Other (Left second toe with dorsal erosion revealing tendon underneath. Positive swelling. Positive erythema. No expressible purulence.)
Neurological: Awake, Alert and Oriented
Lab / Diagnostic Study Results
05/23/25 05:57
05/23/25 05:57
Abs Immat Gran (auto) 0.0 10^3/uL (0-0.05) 05/23/25 05:57
Absolute Neuts (auto) 3.7 10^3/uL (1.4-6.5) 05/23/25 05:57
Absolute Lymphs (auto) 2.4 10^3/uL (1.2-3.4) 05/23/25 05:57
Absolute Monos (auto) 0.6 10^3/uL (0.1-0.6) 05/23/25 05:57
Absolute Basos (auto) 0.1 10^3/uL (0-0.2) 05/23/25 05:57
Immature Gran % 0.3 % (0-0.5) 05/23/25 05:57
Neutrophils % 52.6 % (42.2-75.2) 05/23/25 05:57
Lymphocytes % 33.9 % (20.5-51.1) 05/23/25 05:57
Monocytes % 8.3 % (1.7-9.3) 05/23/25 05:57
Eosinophils % 4.1 % (0-6) 05/23/25 05:57
Basophils % 0.8 % (0-2) 05/23/25 05:57
Assessment / Plan
Left second toe osteomyelitis
Left second toe cellulitis
DM
Hypothyroidism
HLD
HTN
CVA/TIA
Anemia
Depression
Recommendations:
Patient is for second toe amputation later today.
Check intraoperative cultures (although may be compromised by recent antibiotic administration)
Await pathology to assess for surgical cure.
Will attempt to view radiology reports from outside institution.
Further recommendations as additional data is returned.
--- NOTE | 2025-05-23 15:44 | W.PN.SURGUPD ---
Surgical Update
Surgical Update
79 yo F s/p left 2nd toe amputation with primary closure
-Dressings can remain C/D/I
-Continue antibiotics while admitted
-Cultue x1 path x1
-No further surgical plans
-Heel WBAT to LLE in surgical shoe
-PT/OT
[2025-05-23 15:56] LABS: Glucose - Point of Care 100 mg/dl (70-99)
--- NOTE | 2025-05-23 17:16 | PTCARENOTE ---
Patient admitted to 4W from PACU, AAOx3. Patient denying pain or any acute complaints at this time. Surgical dressing CDI. Assisted patient to order dinner. Oriented patient to plan of care. Call choudhary within reach.
[2025-05-23] MEDS: ZETIA 10 MG PO (17:37)
[2025-05-23 21:59] LABS: Glucose - Point of Care 240 mg/dl (70-99)
[2025-05-23] MEDS: LANTUS 0.3 UNITS SC (21:59)
[2025-05-24] MEDS: SYNTHROID 150 MCG PO (06:34)
[2025-05-24 07:00] VITALS: BP 132/66
[2025-05-24 07:07] LABS: Glucose - Point of Care 161 mg/dl (70-99)
[2025-05-24] MEDS: NOVOLOG FLEXPEN-LOW RESISTANCE 1 UNITS SC (08:17)
[2025-05-24] MEDS: LOW STRENGTH ASPIRIN 81 MG PO (08:18)
[2025-05-24] MEDS: ZESTRIL 10 MG PO (08:18)
[2025-05-24] MEDS: ZOLOFT 150 MG PO (08:18)
[2025-05-24] MEDS: OSCAL 500 + D 500 MG PO (08:18)
[2025-05-24 08:37] LABS: Hematocrit 37.5 % (37.0-47.0); Hemoglobin 12.0 g/dL (12.0-16.0); Mean Corp Hgb Conc. 32.0 g/dL (33.0-37.0); Mean Corpuscular Volume 92.4 fL (81.0-99.0); Nucleated Red Blood Cells % 0 %; Platelet Count 179 10^3/uL (130-400); Red Cell Dist. Width 14.0 % (11.5-14.5)
[2025-05-24 09:22] LABS: ALT (SGPT) 15 U/L (0-35); AST (SGOT) 19 U/L (14-36); Albumin 3.9 g/dl (3.5-5.0); Alkaline Phosphatase 47 U/L (38-126); Blood Urea Nitrogen 18 mg/dl (7-17); Calcium 8.8 mg/dl (8.4-10.2); Carbon Dioxide 26 mmol/L (22-30); Chloride 109 mmol/L (98-107); Estimated Creatinine Clearance 43 ml/min; Glucose 154 mg/dl (70-99); Potassium 4.9 mmol/L (3.5-5.1); Sodium 138 mmol/L (135-145); Total Protein 6.3 g/dl (6.3-8.2); eGFR 50.80
[2025-05-24 11:31] LABS: Glucose - Point of Care 141 mg/dl (70-99)
[2025-05-24] MEDS: NOVOLOG FLEXPEN-LOW RESISTANCE SC ×2 (11:32→16:23)
[2025-05-24] MEDS: ANCEF 10 IV ×2 (11:35→19:36)
--- NOTE | 2025-05-24 11:57 | W.PN.HOSP.TC ---
Today's Communication/Plan
-
plavix-okay to restart per surgery
adjust insulin to home regimen
await OR cultures
ID recs
PT eval
Assessment / Plan
Assessment / Plan
General: Comfortable and Conversant;
HEENT: NormoCephalic, Anicteric, Moist mucous membranes, [place] Conjunctivae and No Ptosis
Respiratory: Clear; No Wheezes, Rales or Rhonchi
Cardiac: S1/S2 and Regular Rhythm; No Murmur, Rub, Gallop or Peripheral Edema
GI: Soft, Non Tender, Non Distended, Normal Bowel Sounds
Musculoskeletal: No Clubbing, No Cyanosis and Edema, Left Lower Extremity s/p amputation of L 2nd toe.
Skin: Warm and Dry; No Rash
Neuro: AO x 3, No Motor Deficits, Nonfocal/grossly intact, Cranial Nerves Intact and No Sensory Deficits; No Slurred Speech, Facial Droop, Tremors or Sedated
Psych: Calm
#Osteomyelitis left second toe/hammertoe second toe
Status post left second toe amputation with primary closure
Follow-up on the cultures. No further surgical plans.
Patient was given IV vancomycin IV Unasyn in ER would hold further antibiotics post amputation
Follow CBC, CMP
Per podiatry heel weightbearing as tolerated to left lower extremity in surgical shoe
Preliminary OR cultures negative
ID input.
#DM 2/diabetic neuropathy
Accu-Cheks with SSI,
A1C 7.2
Cont home lantus 60u qhs
Cont home NovoLog 10 units AC
HTN
Continue lisinopril 10 mg daily, Lasix 20 mg daily
HLD
Continue Zetia
GERD
No reported meds
Hypothyroidism
Continue Synthroid
Depression
Continue Zoloft 150 mg daily
CVA/TIA
-Continue aspirin and Plavix. Discussed with surgery okay to be restarted on Plavix.
Frequent UTIs
Hold methenamine 1 g p.o. twice daily
Anemia normocytic
Hemoglobin stable
DVT prophylaxis-
Full code
Anticipated Discharge: > 48 hours
Subjective/Interval History
-
Date of Service: May 24, 2025
denies pain to R foot
tolerating diet
ambulating wtih walker
Objective Data
-
Labs:
Laboratory Results
05/24/25
06:50
WBC 9.0
Hgb 12.0
Hct 37.5
Plt Count 179
Sodium 138
Potassium 4.9 D
Chloride 109 H
Carbon Dioxide 26
BUN 18 H
Creatinine 1.1 H
Glucose 154 H
Calcium 8.8
Total Bilirubin 0.5
AST 19
ALT 15
Alkaline Phosphatase 47
Vital Signs:
Vital Signs
Temp Pulse Resp BP Pulse Ox
97.4 F 66 16 132/66 98
05/24/25 07:00 05/24/25 07:00 05/24/25 07:00 05/24/25 07:00 05/24/25 08:00
I&O
05/23/25 05/24/25 05/25/25
06:59 06:59 06:59
Intake Total 480 / 480
Balance 480 / 480
Data Reviewed
-
Total Time Spent with Patient (in minutes): 55
--- NOTE | 2025-05-24 13:19 | W.PN.ID1 ---
Date of Service
Date of Service: May 24, 2025
Today's Communication
begin cefazolin. Await cultures and path.
Assessment / Plan
Left second toe osteomyelitis
Left second toe cellulitis
DM
Hypothyroidism
HLD
HTN
CVA/TIA
Anemia
Depression
Recommendations:
Pt is s/p second tow amp. and doing well.
Cultures pending but Pt was on prior abx.
Begin ancef.
Await pathology to assess for surgical cure.

Chief Complaint
-: Other (Osteomyelitis left second toe)
Subjective / Review of Systems
Pt seen / examined. No current complaints. S/p toe amp yesterday. Pain controlled.
Review of Systems: No Fever and No Chills
Vital Signs / Physical Exam
Vital Signs
Vital Signs
Temp Pulse Resp BP Pulse Ox
97.4 F 66 16 132/66 98
05/24/25 07:00 05/24/25 07:00 05/24/25 07:00 05/24/25 07:00 05/24/25 08:00
Physical Exam
Constitutional: No Acute Distress, Comfortable and Non-toxic
Eyes: Sclera Anicteric
Pulmonary: Non Labored
Gastrointestinal: Soft, Non Distended and Normal Bowel Sounds
Extremities: Negative Edema, Cyanosis or Erythema
Wound: Other (left foot dressed. Amp site dressed with minimal bloody strikethrough.)
Neurological: Awake and Alert
Psychological: Calm
Objective Data
Lab Data
Lab Results
05/24/25 06:50
05/24/25 06:50
Estimated Creat Clear 43 ml/min 05/24/25 06:50
Total Bilirubin 0.5 mg/dl (0.2-1.3) 05/24/25 06:50
AST 19 U/L (14-36) 05/24/25 06:50
ALT 15 U/L (0-35) 05/24/25 06:50
Alkaline Phosphatase 47 U/L (38-126) 05/24/25 06:50
Most recent labs reviewed.
Micro Results:
05/23/25 15:15 Anaerobic Culture - Preliminary
Toe Culture pending. Anaerobic cultures are examined after 3
days incubation. Additional information to follow.
05/23/25 15:15 Wound Culture - Preliminary
Bone No growth
Gram Stain - Preliminary
--- NOTE | 2025-05-24 14:39 | CM ---
assistant auto center manager reviewed patient's chart and met with patient and patient states that she lives with her spouse at [facility], independent living, one story, patient was independent with adl's and uses a cane, walker, rollator and electric scooter
with ambulation. Per Suzy nurse coordinator at [facility] at [facility], patient needed some assistance from her spouse and she may need skilled when stable for discharge, foster care case manager will await PT/OT notes. The skilled facility
associated with [facility] is [facility], call placed to [facility] the skilled facility at [facility] and foster care case manager spoke with Nate Galvan in admissions and [facility] may not have a bed but they can locate a bed
for patient.
Per Suzy, nurse coordinator patient's spouse is for possible surgery this week.
PCP: Lesly Devlin
Pharmacy: [facility] in [place].
Plan; Possible skilled placement.
[2025-05-24 15:39] VITALS: BP 137/84
[2025-05-24 16:20] LABS: Glucose - Point of Care 136 mg/dl (70-99)
[2025-05-24] MEDS: NOVOLOG FLEXPEN 10 UNITS SC (17:41)
[2025-05-24] MEDS: ZETIA 10 MG PO (17:41)
[2025-05-24 21:06] LABS: Glucose - Point of Care 104 mg/dl (70-99)
--- NOTE | 2025-05-24 21:26 | W.PN.SURGUPD ---
Surgical Update
Surgical Update
79 yo F s/p left 2nd toe amputation 05/23
-Patient seen and evaluated at bedside
-Dressings C/D/I
-Continue abx per ID recs
-Heel WBAT in surgical shoe, recommend continued PT
-Follow up at [facility] in 2 weeks
--- NOTE | 2025-05-24 21:32 | OR.RPT ---
Operative Report
Operative Report
Operative Report
Patient: Shonda Rob

Date of Surgery: 05/23/2025
Surgeon: Dev Fonseca DPM
Assistants: Dev Gibson DPM
Preoperative Diagnosis:
Acute osteomyelitis, left 2nd toe
Postoperative Diagnosis:
Acute osteomyelitis, left 2nd toe
Procedure Performed:
Left 2nd toe amputation CPT 95076
Anesthesia:
[MAC]
Estimated Blood Loss:
Minimal
Specimens:
Left 2nd toe sent to pathology for gross and histopathologic evaluation
Complications:
None
Indications for Procedure:
The patient is a 79-year-old female with acute osteomyelitis of the left 2nd toe. MRI and clinical findings confirmed infection with bone involvement. The risks, benefits, and alternatives of surgical intervention, including the possibility of more
proximal amputation, were discussed with the patient. Informed consent was obtained.
Operative Findings:
The left 2nd toe was necrotic with evidence of acute osteomyelitis involving the proximal phalanx. The metatarsophalangeal joint was viable with healthy bleeding tissue noted at the resection margin.
Procedure in Detail:
The patient was brought to the operating room and placed in the supine position. After appropriate anesthesia was administered, the left foot was prepped and draped in the usual sterile fashion.
A circumferential fish-mouth type incision was made at the level of the 2nd metatarsophalangeal joint. Dissection was carried down through subcutaneous tissue to the level of the joint capsule. The toe was disarticulated sharply at the 2nd MTP
joint. All nonviable and infected soft tissue was excised. The wound was copiously irrigated with sterile saline. Inspection of the metatarsal head revealed viable, healthy bone without gross evidence of infection.
Hemostasis was achieved. The joint capsule and deep tissues were reapproximated using 3-0 Vicryl suture. The skin was closed primarily with interrupted 3-0 Prolene sutures. A sterile dressing was applied.
The patient tolerated the procedure well and was transferred to the recovery unit in stable condition.
The patient will be admitted for antibiotics per Infectious Disease recommendations, wound care, and monitoring. Weightbearing status and further disposition will be determined postoperatively.
[2025-05-24] MEDS: PLAVIX PO (22:02)
[2025-05-24] MEDS: LANTUS 0.3 UNITS SC (22:24)
[2025-05-24 23:00] VITALS: BP 116/50
[2025-05-25] MEDS: ANCEF 10 IV ×3 (04:36→19:30)
[2025-05-25] MEDS: SYNTHROID 150 MCG PO (04:41)
--- NOTE | 2025-05-25 07:10 | W.PN.UPDATE ---
Update Note
Progress Note Update
BS 104, only 30 units Lantus ordered. Held 60 units Lantus
[2025-05-25 07:19] LABS: Glucose - Point of Care 106 mg/dl (70-99)
[2025-05-25] MEDS: NOVOLOG FLEXPEN-LOW RESISTANCE SC ×3 (07:25→17:42)
[2025-05-25 08:00] VITALS: BP 128/63
[2025-05-25] MEDS: ZOLOFT 150 MG PO (08:40)
[2025-05-25] MEDS: OSCAL 500 + D 500 MG PO (08:41)
[2025-05-25] MEDS: VITAMIN D3 (cholecalciferol) 25 MCG PO (08:41)
[2025-05-25] MEDS: LOW STRENGTH ASPIRIN 81 MG PO (08:41)
[2025-05-25] MEDS: OSCAL CAL 500 1000 MG PO (08:41)
[2025-05-25] MEDS: ZESTRIL 10 MG PO (08:41)
[2025-05-25] MEDS: LIPITOR 10 MG PO (08:41)
[2025-05-25 08:43] LABS: Hematocrit 35.2 % (37.0-47.0); Hemoglobin 11.6 g/dL (12.0-16.0); Mean Corp Hgb Conc. 33.0 g/dL (33.0-37.0); Mean Corpuscular Volume 91.2 fL (81.0-99.0); Nucleated Red Blood Cells % 0 %; Platelet Count 167 10^3/uL (130-400); Red Cell Dist. Width 14.0 % (11.5-14.5)
[2025-05-25] MEDS: NOVOLOG FLEXPEN 10 UNITS SC ×2 (08:52→18:09)
[2025-05-25 09:01] LABS: ALT (SGPT) 11 U/L (0-35); AST (SGOT) 19 U/L (14-36); Albumin 3.7 g/dl (3.5-5.0); Alkaline Phosphatase 44 U/L (38-126); Blood Urea Nitrogen 21 mg/dl (7-17); Calcium 9.3 mg/dl (8.4-10.2); Carbon Dioxide 27 mmol/L (22-30); Chloride 107 mmol/L (98-107); Estimated Creatinine Clearance 43 ml/min; Glucose 103 mg/dl (70-99); Potassium 4.6 mmol/L (3.5-5.1); Sodium 137 mmol/L (135-145); Total Protein 6.1 g/dl (6.3-8.2); eGFR 50.80
--- NOTE | 2025-05-25 09:46 | CM ---
Chart reviewed. Patient will need SNF at d/c. Patient resides at [facility]. Per chart, community does not have any beds in their rehab. Received message from Nate Galvan, social work faculty member, requesting referral clinical packet to
begin searching for SNF bed within the active network of [place]. Awaiting PT eval, patient doesn't have surgical shoe yet.
CM faxed clinicals to [phone], left message w/ Nate
--- NOTE | 2025-05-25 10:56 | W.PN.HOSP.TC ---
Today's Communication/Plan
-
ID recs
IV cefazolin
reduce lantus
probably may require SNF on dc
Assessment / Plan
Assessment / Plan
General: Comfortable and Conversant;
HEENT: NormoCephalic, Anicteric, Moist mucous membranes, [place] Conjunctivae and No Ptosis
Respiratory: Clear; No Wheezes, Rales or Rhonchi
Cardiac: S1/S2 and Regular Rhythm; No Murmur, Rub, Gallop or Peripheral Edema
GI: Soft, Non Tender, Non Distended, Normal Bowel Sounds
Musculoskeletal: No Clubbing, No Cyanosis and Edema, Left Lower Extremity s/p amputation of L 2nd toe.
Skin: Warm and Dry; No Rash
Neuro: AO x 3, No Motor Deficits, Nonfocal/grossly intact, Cranial Nerves Intact No Slurred Speech, Facial Droop, Tremors
Psych: Calm
#Osteomyelitis left second toe/hammertoe second toe
Status post left second toe amputation with primary closure
Follow-up on the cultures. No further surgical plans.
Patient was given IV vancomycin IV Unasyn in ER would hold further antibiotics post amputation
Follow CBC, CMP
Per podiatry heel weightbearing as tolerated to left lower extremity in surgical shoe
Preliminary OR cultures negative
On IV cefazolin
ID input.
#DM 2/diabetic neuropathy
Accu-Cheks with SSI,
A1C 7.2
Cont with reduce dose of lantus 30u qhs.
Cont home NovoLog 10 units AC
POC AM 106.
HTN
Continue lisinopril 10 mg daily, Lasix 20 mg daily
HLD
Continue Zetia
GERD
No reported meds
Hypothyroidism
Continue Synthroid
Depression
Continue Zoloft 150 mg daily
CVA/TIA
-Continue aspirin and Plavix. Discussed with surgery okay to be restarted on Plavix.
Frequent UTIs
Hold methenamine 1 g p.o. twice daily
Anemia normocytic
Hemoglobin stable
DVT prophylaxis-
Full code
PT eval pending new shoe
Anticipated Discharge: > 48 hours
Subjective/Interval History
-
Date of Service: May 25, 2025
awaiting for surgical shoe
having breakfast
talking to spouse over the phone
Objective Data
-
Labs:
Laboratory Results
05/25/25
07:49
WBC 8.3
Hgb 11.6 L
Hct 35.2 L
Plt Count 167
Sodium 137
Potassium 4.6
Chloride 107
Carbon Dioxide 27
BUN 21 H
Creatinine 1.1 H
Glucose 103 H
Calcium 9.3
Total Bilirubin 0.4
AST 19
ALT 11
Alkaline Phosphatase 44
Vital Signs:
Vital Signs
Temp Pulse Resp BP Pulse Ox
98 F 73 16 128/63 98
05/25/25 08:00 05/25/25 08:00 05/25/25 08:00 05/25/25 08:00 05/25/25 08:00
I&O
05/24/25 05/25/25 05/26/25
06:59 06:59 06:59
Intake Total 480 / 480 1020 / 1020
Balance 480 / 480 1020 / 1020
[2025-05-25 12:01] LABS: Glucose - Point of Care 90 mg/dl (70-99)
[2025-05-25] MEDS: NOVOLOG FLEXPEN SC (13:37)
--- NOTE | 2025-05-25 14:17 | W.PN.ID1 ---
Date of Service
Date of Service: May 25, 2025
Today's Communication
Continue cefazolin for today.
Assessment / Plan
Left second toe osteomyelitis
Left second toe cellulitis
DM
Hypothyroidism
HLD
HTN
CVA/TIA
Anemia
Depression
Recommendations:
Pt is s/p second tow amp. and doing well.
Cultures pending but Pt was on prior abx.
Continue cefazolin while cultures and path are pending.
Await pathology to assess for surgical cure.

Chief Complaint
-: Other (Osteomyelitis left second toe)
Subjective / Review of Systems
Review of Systems: No Fever and No Chills
Vital Signs / Physical Exam
Vital Signs
Vital Signs
Temp Pulse Resp BP Pulse Ox
98 F 73 16 128/63 98
05/25/25 08:00 05/25/25 08:00 05/25/25 08:00 05/25/25 08:00 05/25/25 08:00
Physical Exam
Constitutional: No Acute Distress, Comfortable and Non-toxic
Eyes: Sclera Anicteric
Pulmonary: Non Labored
Gastrointestinal: Soft, Non Distended and Normal Bowel Sounds
Extremities: Negative Edema, Cyanosis or Erythema
Wound: Other (left foot dressed. Amp site dressed with minimal bloody strikethrough.)
Neurological: Awake and Alert
Psychological: Calm
Objective Data
Lab Data
Lab Results
05/25/25 07:49
05/25/25 07:49
Estimated Creat Clear 43 ml/min 05/25/25 07:49
Total Bilirubin 0.4 mg/dl (0.2-1.3) 05/25/25 07:49
AST 19 U/L (14-36) 05/25/25 07:49
ALT 11 U/L (0-35) 05/25/25 07:49
Alkaline Phosphatase 44 U/L (38-126) 05/25/25 07:49
Most recent labs reviewed.
Micro Results:
05/23/25 15:15 Wound Culture - Preliminary
Bone No growth
Gram Stain - Preliminary
05/23/25 15:15 Anaerobic Culture - Preliminary
Toe Culture pending. Anaerobic cultures are examined after 3
days incubation. Additional information to follow.
[2025-05-25 16:00] VITALS: BP 118/41
[2025-05-25 17:41] LABS: Glucose - Point of Care 143 mg/dl (70-99)
[2025-05-25] MEDS: ZETIA 10 MG PO (18:09)
[2025-05-25 21:43] LABS: Glucose - Point of Care 100 mg/dl (70-99)
[2025-05-25] MEDS: LANTUS 0.3 UNITS SC (21:51)
[2025-05-25] MEDS: PLAVIX PO (21:54)
[2025-05-25 23:21] VITALS: BP 146/67
[2025-05-26 03:07] LABS: Glucose - Point of Care 121 mg/dl (70-99)
[2025-05-26] MEDS: ANCEF 10 IV ×2 (03:29→13:20)
[2025-05-26] MEDS: SYNTHROID 150 MCG PO (05:47)
[2025-05-26 08:00] VITALS: BP 133/56
[2025-05-26 08:50] LABS: Glucose - Point of Care 140 mg/dl (70-99)
[2025-05-26] MEDS: NOVOLOG FLEXPEN-LOW RESISTANCE SC (09:15)
[2025-05-26] MEDS: ZESTRIL 10 MG PO (09:46)
[2025-05-26] MEDS: OSCAL 500 + D 500 MG PO (09:46)
[2025-05-26] MEDS: OSCAL CAL 500 1000 MG PO (09:46)
[2025-05-26] MEDS: VITAMIN D3 (cholecalciferol) 25 MCG PO (09:47)
[2025-05-26] MEDS: ZOLOFT 150 MG PO (09:47)
[2025-05-26] MEDS: LIPITOR PO ×2 (09:47→10:00)
[2025-05-26] MEDS: LOW STRENGTH ASPIRIN 81 MG PO (09:47)
[2025-05-26] MEDS: NOVOLOG FLEXPEN 10 UNITS SC ×3 (09:48→18:20)
--- NOTE | 2025-05-26 11:47 | PTCARENOTE ---
Assumed care of pt from previous nurse. Pt denies pain. Pt dressing to left foot cdi. Pt call choudhary is within reach, pt rings rosa. will cont to monitor.
--- NOTE | 2025-05-26 11:48 | W.PN.HOSP.TC ---
Today's Communication/Plan
-
Await disposition planning by case management
ID recs for antibiotics
Strict glycemic control
Assessment / Plan
Assessment / Plan
General: Comfortable and Conversant;
HEENT: NormoCephalic, Anicteric, Moist mucous membranes, [place] Conjunctivae and No Ptosis
Respiratory: Clear; No Wheezes, Rales or Rhonchi
Cardiac: S1/S2 and Regular Rhythm; No Murmur, Rub, Gallop or Peripheral Edema
GI: Soft, Non Tender, Non Distended, Normal Bowel Sounds
Musculoskeletal: No Clubbing, No Cyanosis and Edema, Left Lower Extremity s/p amputation of L 2nd toe.
Skin: Warm and Dry; No Rash
Neuro: AO x 3, No Motor Deficits, Nonfocal/grossly intact, Cranial Nerves Intact No Slurred Speech, Facial Droop, Tremors
Psych: Calm
#Osteomyelitis left second toe/hammertoe second toe
Status post left second toe amputation with primary closure
Follow-up on the cultures. No further surgical plans.
Patient was given IV vancomycin IV Unasyn in ER would hold further antibiotics post amputation
Follow CBC, CMP
Per podiatry heel weightbearing as tolerated to left lower extremity in surgical shoe
Preliminary OR cultures negative
Of note patient was on antibiotics prior to admission
Path report left second toe dorsal ulceration. No evidence of osteomyelitis in the section of the bone examined.
On IV cefazolin
ID input.
#DM 2/diabetic neuropathy
Accu-Cheks with SSI,
A1C 7.2
Cont with reduce dose of lantus 30u qhs.
Cont home NovoLog 10 units AC
POC AM 140.
HTN
Continue lisinopril 10 mg daily, Lasix 20 mg daily
HLD
Continue Zetia
GERD
No reported meds
Hypothyroidism
Continue Synthroid
Depression
Continue Zoloft 150 mg daily
CVA/TIA
-Continue aspirin and Plavix. Discussed with surgery okay to be restarted on Plavix.
Frequent UTIs
Hold methenamine 1 g p.o. twice daily
Anemia normocytic
Hemoglobin stable
DVT prophylaxis-
Full code
PT eval Home health
Anticipated Discharge: Within 24 hours
Subjective/Interval History
-
Date of Service: May 26, 2025
denies pain to foot
Says she has neuropathy
Objective Data
-
Vital Signs:
Vital Signs
Temp Pulse Resp BP Pulse Ox
97.8 F 90 18 133/56 98
05/26/25 08:00 05/26/25 09:46 05/26/25 08:00 05/26/25 09:46 05/26/25 08:00
I&O
05/25/25 05/26/25 05/27/25
06:59 06:59 06:59
Intake Total 1020 / 1020 1040 / 1040
Balance 1020 / 1020 1040 / 1040
[2025-05-26 13:02] LABS: Glucose - Point of Care 169 mg/dl (70-99)
[2025-05-26] MEDS: NOVOLOG FLEXPEN-LOW RESISTANCE 1 UNITS SC ×2 (13:18→18:20)
--- NOTE | 2025-05-26 14:49 | W.PN.ID1 ---
Date of Service
Date of Service: May 26, 2025
Today's Communication
Discontinue further antibiotics.
Assessment / Plan
Left second toe osteomyelitis
Left second toe cellulitis
DM
Hypothyroidism
HLD
HTN
CVA/TIA
Anemia
Depression
Recommendations:
Pt is s/p second tow amp. and doing well.
Cultures negative.
Pathology negative for residual osteo.
Discontinue further antibiotics.

Chief Complaint
-: Other (Osteomyelitis left second toe)
Subjective / Review of Systems
Review of Systems: No Fever and No Chills
Vital Signs / Physical Exam
Vital Signs
Vital Signs
Temp Pulse Resp BP Pulse Ox
97.8 F 90 18 133/56 98
05/26/25 08:00 05/26/25 09:46 05/26/25 08:00 05/26/25 09:46 05/26/25 08:00
Physical Exam
Constitutional: No Acute Distress, Comfortable and Non-toxic
Eyes: Sclera Anicteric
Pulmonary: Non Labored
Gastrointestinal: Non Distended
Extremities: Negative Edema, Cyanosis or Erythema
Wound: Other (left foot dressed. Amp site dressed with minimal bloody strikethrough.)
Neurological: Awake and Alert
Psychological: Calm
Objective Data
Lab Data
Lab Results
05/25/25 07:49
05/25/25 07:49
Estimated Creat Clear 43 ml/min 05/25/25 07:49
Total Bilirubin 0.4 mg/dl (0.2-1.3) 05/25/25 07:49
AST 19 U/L (14-36) 05/25/25 07:49
ALT 11 U/L (0-35) 05/25/25 07:49
Alkaline Phosphatase 44 U/L (38-126) 05/25/25 07:49
Most recent labs reviewed.
Micro Results:
05/23/25 15:15 Anaerobic Culture - Preliminary
Toe NO ANAEROBES ISOLATED
05/23/25 15:15 Wound Culture - Preliminary
Bone No growth
Gram Stain - Preliminary
Pathology:
05/23/2025 Left second toe, amputation: no evidence of osteomyelitis in the section of bone examined.
Care Review
Plan reviewed with: Physician (Podiatry)
[2025-05-26 15:42] VITALS: BP 127/68
--- NOTE | 2025-05-26 16:07 | CM ---
Following up on patient. PT is recommending Home PT, but knowing her health insurance and where she lives ([facility]), patient can choose SNF or Home PT.
BRENNAN Barrett met with patient and her daughter via the phone, Yolie (#[phone]), and both decided on [facility]. BRENNAN Barrett spoke to [facility] then Roland at [facility] who had a bed, but the patient's (unknown to BRENNAN) told
Roland that the patient did not want [facility] yesterday. BRENNAN Barrett informed [facility] that today, patient and daughter would like a bed there, and now one is only available tomorrow.
Roland asked for after 3pm apple picker. BRENNAN Barrett confirmed with Dr. Lemus that patient can discharge tomorrow. BRENNAN Barrett spoke to daughter Yolie re: the transfer tomorrow and that either she can take the patient or pay for wheel chair service.
Yolie will come and apple picker her mother tomorrow being here by 3:30pm to take her mother.
IMM completed today
Plan: SNF to [facility] tomorrow by daughter, apple picker at 3:30pm.
[facility]
[address], [place] [address]
(or [phone])
RN Report: [phone] (or [phone]) ext: [phone]
--- NOTE | 2025-05-26 16:13 | W.PN.SURGUPD ---
Surgical Update
Surgical Update
79 yo F s/p left 2nd toe amputation
-Dressings changed and wound inspected. No signs of acute infection, incision well coapted
-No furhter antibiotics needed
-Heel WB in surgical shoe
-Continue PT
-OK for DC when medically appropriate
-To follow up with myself at [facility] 2 weeks after surgery
[2025-05-26 17:51] LABS: Glucose - Point of Care 157 mg/dl (70-99)
[2025-05-26] MEDS: ZETIA 10 MG PO (18:20)
[2025-05-26 21:28] LABS: Glucose - Point of Care 249 mg/dl (70-99)
[2025-05-26] MEDS: LANTUS 0.3 UNITS SC (21:31)
[2025-05-26] MEDS: PLAVIX 75 MG PO (21:31)
[2025-05-26 23:26] VITALS: BP 143/62
[2025-05-27] MEDS: SYNTHROID 150 MCG PO (05:52)
[2025-05-27 07:15] VITALS: BP 133/50
[2025-05-27 09:32] LABS: Glucose - Point of Care 151 mg/dl (70-99)
[2025-05-27] MEDS: NOVOLOG FLEXPEN 10 UNITS SC ×2 (09:35→14:29)
[2025-05-27] MEDS: NOVOLOG FLEXPEN-LOW RESISTANCE 1 UNITS SC (09:35)
[2025-05-27] MEDS: OSCAL CAL 500 1000 MG PO (09:45)
[2025-05-27] MEDS: ZOLOFT 150 MG PO (09:45)
[2025-05-27] MEDS: OSCAL 500 + D 500 MG PO (09:46)
[2025-05-27] MEDS: LIPITOR PO ×2 (09:46→09:52)
[2025-05-27] MEDS: ZESTRIL 10 MG PO (09:46)
[2025-05-27] MEDS: VITAMIN D3 (cholecalciferol) 25 MCG PO (09:47)
[2025-05-27] MEDS: LOW STRENGTH ASPIRIN 81 MG PO (09:47)
--- NOTE | 2025-05-27 10:55 | W.PN.HOSP.TC ---
Today's Communication/Plan
-
dc to SNF
Op podiatry f/u
increase lantus
Assessment / Plan
Assessment / Plan
General: Comfortable and Conversant;
HEENT: NormoCephalic, Anicteric, Moist mucous membranes, [place] Conjunctivae and No Ptosis
Respiratory: Clear; No Wheezes, Rales or Rhonchi
Cardiac: S1/S2 and Regular Rhythm; No Murmur, Rub, Gallop or Peripheral Edema
GI: Soft, Non Tender, Non Distended, Normal Bowel Sounds
Musculoskeletal: No Clubbing, No Cyanosis and Edema, Left Lower Extremity s/p amputation of L 2nd toe.
Skin: Warm and Dry; No Rash
Neuro: AO x 3, No Motor Deficits, Nonfocal/grossly intact, Cranial Nerves Intact No Slurred Speech, Facial Droop, Tremors
Psych: Calm
#Osteomyelitis left second toe/hammertoe second toe
Status post left second toe amputation with primary closure
Follow-up on the cultures. No further surgical plans.
Patient was given IV vancomycin IV Unasyn in ER would hold further antibiotics post amputation
Follow CBC, CMP
Per podiatry heel weightbearing as tolerated to left lower extremity in surgical shoe
Preliminary OR cultures negative
Of note patient was on antibiotics prior to admission
Path report left second toe dorsal ulceration. No evidence of osteomyelitis in the section of the bone examined.
Discussed with Dr. Brown no need for further antibiotics. Okay for discharge.
ID input.
#DM 2/diabetic neuropathy
Accu-Cheks with SSI,
A1C 7.2
Increase Lantus to 35 nightly
Cont home NovoLog 10 units AC
POC AM 151
HTN
Continue lisinopril 10 mg daily, Lasix 20 mg daily
HLD
Continue Zetia
GERD
No reported meds
Hypothyroidism
Continue Synthroid
Depression
Continue Zoloft 150 mg daily
CVA/TIA
-Continue aspirin and Plavix. Discussed with surgery okay to be restarted on Plavix.
Frequent UTIs
Restart methenamine 1 g p.o. twice daily
Anemia normocytic
Hemoglobin stable
DVT prophylaxis-
Full code
PT eval DC to SNF today.
More than 30 minutes spent in discharge including
Final examination of the patient
Summarizing hospital stay
Instructions for continuing care to all relevant caregivers
Preparation of discharge records, prescriptions, and referral forms
Total time spent (in minutes): 52
Anticipated Discharge: Today
Subjective/Interval History
-
Date of Service: May 27, 2025
denies pain to left foot
Objective Data
-
Vital Signs:
Vital Signs
Temp Pulse Resp BP Pulse Ox
97.6 F 69 16 133/50 99
05/27/25 07:15 05/27/25 07:15 05/27/25 07:15 05/27/25 07:15 05/27/25 07:15
I&O
05/26/25 05/27/25 05/28/25
06:59 06:59 06:59
Intake Total 1040 / 1040 480 / 480
Balance 1040 / 1040 480 / 480
--- NOTE | 2025-05-27 10:57 | W.DCSUMMARY ---
Discharge Summary
Discharge Data
Date of Admission: 05/22/25
Date of Discharge: 05/27/25
-
Pending Results: No
Hospital Course
79-year-old female past medical history of diabetes, hypertension, hyperlipidemia, GERD, hypothyroidism, depression, TIA, anemia who is presenting with left fourth toe pain and redness. Patient saw outpatient podiatry and underwent MRI. Patient
was taking antibiotics prior to arrival to the hospital. MRI confirms suspicion of osteomyelitis and podiatry sent patient to the hospital. Patient was evaluated by infectious disease and Dr. Dev Fonseca. Patient went to the operating room
status post left second toe amputation. Patient was given dose of IV vancomycin Unasyn in the ER which was further discontinued. Patient wound culture was found to be negative. Patient pathology report from the operating room was negative for
osteomyelitis. Patient was briefly started on IV cefazolin by infectious disease however that was discontinued. Per infectious disease no need for further antibiotics. Patient received surgical shoe and was ambulating with physical therapy.
Patient was eval by physical and Occupational Therapy to be discharged to nursing home facility. Patient also had episode of low blood glucose and Lantus dose was decreased.
Discharge Plan
-
Patient Disposition: Shelter/SNF
Discharge Diagnosis/Procedures: Left second toe osteomyelitis and cellulitis status post left second toe amputation
Condition: Fair
Diet: Diabetic, Carb Controlled
Activity: With assistance and As tolerated
Driving Restrictions: Not until seen by your Dr
Referrals:
Lesly Devlin MD [Family Provider, Internal Medicine] - in less than 1 week
Dev Fonseca MD [Active, Podiatry] - in two weeks
Referral Note: call to make appt.
Additional Discharge Medication Instructions: Lantus has been decreased to 35 units nightly
Prescriptions:
Continued
loperamide 2 mg Capsule
2 mg PO Q6HPRN PRN (Reason: loose stool)
methenamine hippurate 1 gram Tablet
1 g PO BID
furosemide [Lasix] 20 mg Tablet
20 mg PO DAILY
fluticasone propionate 50 mcg/actuation Commodore,Suspension
1 spray INTRANASAL DAILYPRN PRN (Reason: allergies)
pitavastatin calcium 2 mg Tablet
2 mg PO DAILY
sertraline 150 mg Capsule
150 mg PO DAILY
biotin 5,000 mcg Tablet,Chewable
1,000 mcg PO DAILY
clopidogrel [Plavix] 75 mg Tablet
75 mg PO HS
aspirin 81 mg Tablet,Delayed Release (Dr/Ec)
81 mg PO DAILY
levothyroxine [Synthroid] 150 mcg Tablet
150 mcg PO DAILY
ezetimibe [Zetia] 10 mg Tablet
10 mg PO QPM
insulin aspart U-100 [Novolog FlexPen U-100 Insulin] 100 unit/mL (3 mL) Insulin Pen
10 sliding scale dose SC AC
Rx Instructions:
Postprandial 3 times daily
calcium carbonate [Calcium 600] 600 mg calcium (1,500 mg) Tablet
1,200 mg PO DAILY
lisinopril 10 mg Tablet
10 mg PO DAILY
cholecalciferol (vitamin D3) [Vitamin D3] 25 mcg (1,000 unit) Tablet
25 mcg PO DAILY
Beano 400 unit Tablet
400 unit PO DAILYPRN PRN (Reason: gas pains)
Changed
insulin glargine [Lantus Solostar U-100 Insulin] 100 unit/mL (3 mL) Insulin Pen
35 unit SC HS Qty: 0 0RF
Discontinued
mupirocin 2 % Ointment
1 applic TOPICAL DAILY
Discharge Orders:
Discharge Patient (As Directed); Ordered 05/27/25
Ordered By: Jay Lemus
Discharge Date and Time
Print Language: YEMENI
--- NOTE | 2025-05-27 11:21 | CM ---
CM reviewed chart, plan for discharge to [facility], daughter to transport around 3:30 p.m. CM spoke with [facility], confirmed bed availability, can take report from nurse 2:00 p.m. and on. CM will continue to follow for all
discharge planning needs.
Plan; [facility], daughter to transport 3:30 p.m.
[facility]
[address], [place] [address]
(or [phone])
RN Report: [phone] (or [phone]) ext: [phone]
[2025-05-27 13:22] LABS: Glucose - Point of Care 107 mg/dl (70-99)
[2025-05-27] MEDS: NOVOLOG FLEXPEN-LOW RESISTANCE SC (13:36)
[2025-05-27 15:08] VITALS: BP 116/60
== END 2025-05-27 15:23 | DRG 617 ==
LOC: 4 WEST ACU 22:54
PROVIDERS: Clinical Nurse Specialist Family Health; ADMITTING PHYSICIAN Hospitalist; ATTENDING PHYSICIAN Hospitalist; CONSULT PHYSICIAN Student in an Organized Health Care Education/Training Program; EMERGENCY PHYSICIAN Emergency Medicine; FAMILY PHYSICIAN Internal Medicine; OTHER PHYSICIAN Internal Medicine Infectious Disease
PROC: 0Y6S0Z0 Detachment at Left 2nd Toe, Complete, Open Approach (ICD-10-PCS; 2025-05-24)
DX: E11.69 Type 2 diabetes mellitus with other specified complication (principal); L97.526 Non-pressure chronic ulcer of other part of left foot with bone involvement without evidence of necrosis; M86.9 Osteomyelitis, unspecified; E11.621 Type 2 diabetes mellitus with foot ulcer; D64.9 Anemia, unspecified; E03.9 Hypothyroidism, unspecified; E11.40 Type 2 diabetes mellitus with diabetic neuropathy, unspecified; E78.00 Pure hypercholesterolemia, unspecified; F32.A Depression, unspecified; I10 Essential (primary) hypertension; I25.10 Atherosclerotic heart disease of native coronary artery without angina pectoris; K21.9 Gastro-esophageal reflux disease without esophagitis; M20.42 Other hammer toe(s) (acquired), left foot; L03.032 Cellulitis of left toe; Z91.040 Latex allergy status; Z86.73 Personal history of transient ischemic attack (TIA), and cerebral infarction without residual deficits; Z79.899 Other long term (current) drug therapy; Z88.8 Allergy status to other drugs, medicaments and biological substances; Z79.84 Long term (current) use of oral hypoglycemic drugs; Z79.02 Long term (current) use of antithrombotics/antiplatelets; Z79.82 Long term (current) use of aspirin
CPT/HCPCS: 73620; 80048; 80053; 82962; 83036; 83735; 85025; 87070; 87075; 87205; 88305; 88311; 93005; 97116; 97163; 97530

== ENCOUNTER → 2025-09-06 15:42 | Outpatient (REF) | payer MEDICARE, OTHER, SELFPAY ==
[2025-09-06 17:35] LABS: Urine Character Clear (Clear)
[2025-09-06 17:45] LABS: ALT (SGPT) 19 U/L (0-35); AST (SGOT) 27 U/L (14-36); Albumin 4.2 g/dl (3.5-5.0); Alkaline Phosphatase 67 U/L (38-126); Blood Urea Nitrogen 17 mg/dl (7-17); Calcium 10.3 mg/dl (8.4-10.2); Carbon Dioxide 27 mmol/L (22-30); Chloride 101 mmol/L (98-107); Glucose 88 mg/dl (70-99); Potassium 3.8 mmol/L (3.5-5.1); Sodium 136 mmol/L (135-145); Total Protein 6.9 g/dl (6.3-8.2); eGFR 50.80
[2025-09-06 18:02] LABS: Microalb - Urine Creatinine 150.000 mg/dl
[2025-09-06 18:07] LABS: Microalbumin, Random Urine 4.7 mg/dl (0.6-1.7)
[2025-09-06 18:15] LABS: TSH 0.21 uIU/ml (0.47-4.68)
[2025-09-06 20:32] LABS: Urine Squamous Cell >30 /LPF (Few)
[2025-09-07 09:44] LABS: Glycohemoglobin (HgbA1c) 9.1 % (4.0-5.9)
== END ==
LOC: RAD 15:42
PROVIDERS: ATTENDING PHYSICIAN Internal Medicine
DX: R44.3 Hallucinations, unspecified (principal); E11.49 Type 2 diabetes mellitus with other diabetic neurological complication; E03.9 Hypothyroidism, unspecified; E78.5 Hyperlipidemia, unspecified; N39.0 Urinary tract infection, site not specified
CPT/HCPCS: 36415; 70450; 80053; 81003; 81015; 82043; 82570; 83036; 84439; 84443; 84480; 87086